=== PATIENT | female | born 1935 | race Caucasian/White ===

== ENCOUNTER 2022-03-18 10:58 | Emergency (ER) | payer OTHER ==
[~2022-03-18 10:58] MED LIST: ACETAMINOPHEN325 MG PO; AMARYL2 MG PO; ANTIVERT25 MG PO; ASPIRIN CHEWABL81 MG PO; CERTAGEN1 EACH PO; CIPRO500 M1 PO; COREG12.5 MG PO; FENOFIBRATE145 MG PO; FEOSOL325 MG PO; JANUMET 50-1,01 EACH PO; LANTUS **100 UNITS/ SC; LAXATIVE5 M1 PO; LISINOPRIL-HCT1 EAC1 PO; LOTREL 5-20 MG1 EACH PO; LOVASTATIN20 MG PO; LOVAZA1 GM PO; METFORMIN HCL500 MG PO; NIACIN ER500 MG PO; PRAVACHOL20 MG PO; PRILOSEC20 MG PO; SYNTHROID50 MCG PO; TURMERIC 500 M1 EACH PO; ULTRAM50 MG PO; VASCEPA1 GM PO; XARELTO10 MG PO; [UNRECOGNIZED DRUG - OTHER] PO
[2022-03-18] MEDS ORDERED: NORCO 5-325 TA1 EACH PO (13:15)
[2022-03-18] MEDS ORDERED: PREDNISONE 20MG20 MG PO (13:15)
== END 2022-03-18 14:13 | disposition home or self-care (01) ==
LOC: FER 10:58
DX: M46.22 Osteomyelitis of vertebra, cervical region (principal); E11.9 Type 2 diabetes mellitus without complications; I10 Essential (primary) hypertension; Z79.84 Long term (current) use of oral hypoglycemic drugs; Z79.4 Long term (current) use of insulin
CPT/HCPCS: 72125

== ENCOUNTER 2022-04-02 18:04 | Emergency (ER) | payer OTHER ==
[~2022-04-02 18:04] MED LIST changes: +NORCO 5-325 TA1 EACH PO; +PREDNISONE 20MG20 MG PO
[2022-04-02 19:59] LABS: BILIRUBIN NEGATIVE (NEGATIVE); BLOOD NEGATIVE Ery/uL (NEGATIVE); CLARITY CLEAR (CLEAR); COLOR YELLOW (YELLOW); GLUCOSE (U) NORMAL (NORMAL); LEUKOCYTES NEGATIVE Leu/uL (NEGATIVE); NITRITE NEGATIVE (NEGATIVE); PROTEIN NEGATIVE (NEGATIVE); UROBILINOGEN 0.2 mg/dL (0.2-1.0); pH 5.5 (5.0-9.0)
[2022-04-02 19:59] LABS: BASOPHIL 0.2 % (0-2); EOSINOPHIL 0.8 % (0-7); HCT 27.9 % (37.0-47.0); LYMPHOCYTE 12.3 % (15-48); MCHC 28.7 g/dL (32.0-36.0); MCV 76.9 fL (78.0-100.0); MONOCYTE 5.1 % (0-12); NEUTROPHIL 80.9 % (41-80); NRBC 0; PLT 505 K/uL (150-400); RBC 3.63 M/uL (4.20-5.40); RDW 18.7 % (11.5-14.0); WBC 14.9 K/uL (4.0-10.5)
[2022-04-02 20:15] LABS: BUN/CREAT RATIO (CALC) 19.1 RATIO; CREATININE 1.1 mg/dL (0.51-0.95); POTASSIUM 4.3 mmol/L (3.5-5.1)
[2022-04-02] MEDS ORDERED: BACLOFEN 10MG T10 MG PO (20:42)
== END 2022-04-02 21:11 | disposition home or self-care (01) ==
LOC: FER 18:04
PROVIDERS: Nurse Practitioner Family
DX: M54.2 Cervicalgia (principal); M19.09 Primary osteoarthritis, other specified site; I10 Essential (primary) hypertension; E11.9 Type 2 diabetes mellitus without complications; Z87.891 Personal history of nicotine dependence
CPT/HCPCS: 36415; 80048; 81003; 85025; 99283

== ENCOUNTER → 2022-04-26 | Day surgery (SDC) | payer OTHER ==
[~2022-04-26] VITALS: Ht 154.9 cm; Wt 71.8 kg
[~2022-04-26] MED LIST changes: +BACLOFEN 10MG T10 MG PO; +IRON325 M1 PO; +PROTONIX 40MG T40 MG PO
== END | disposition home or self-care (01) ==
LOC: FAS 04-05 12:00
DX: D64.9 Anemia, unspecified (principal); K92.1 Melena; R19.7 Diarrhea, unspecified; K59.00 Constipation, unspecified; K29.80 Duodenitis without bleeding; K31.9 Disease of stomach and duodenum, unspecified; C43.9 Malignant melanoma of skin, unspecified; K21.9 Gastro-esophageal reflux disease without esophagitis; K44.9 Diaphragmatic hernia without obstruction or gangrene; K57.30 Diverticulosis of large intestine without perforation or abscess without bleeding; K62.89 Other specified diseases of anus and rectum; I25.10 Atherosclerotic heart disease of native coronary artery without angina pectoris; I10 Essential (primary) hypertension; E03.9 Hypothyroidism, unspecified; E78.00 Pure hypercholesterolemia, unspecified; Z86.010 Personal history of colon polyps
CPT/HCPCS: J2704; J7120

== ENCOUNTER 2022-05-17 08:16 | Emergency (ER) | payer OTHER ==
[2022-05-17 09:39] LABS: BILIRUBIN NEGATIVE (NEGATIVE); BLOOD TRACE-INTACT Ery/uL (NEGATIVE); CLARITY CLEAR (CLEAR); COLOR YELLOW (YELLOW); GLUCOSE (U) NORMAL (NORMAL); LEUKOCYTES TRACE Leu/uL (NEGATIVE); NITRITE NEGATIVE (NEGATIVE); PROTEIN TRACE (LOW) mg/dL (NEGATIVE); SPECIFIC GRAVITY 1.015 (1.001-1.030); UROBILINOGEN 0.2 mg/dL (0.2-1.0)
[2022-05-17 09:50] LABS: BACTERIA 1+
[2022-05-17 10:22] LABS: BASOPHIL 0.4 % (0-2); HCT 29.8 % (37.0-47.0); HGB 8.6 g/dl (12.5-16.0); LYMPHOCYTE 15.8 % (15-48); MCH 23.8 pg (25.0-31.0); MCHC 28.9 g/dL (32.0-36.0); MCV 82.3 fL (78.0-100.0); MONOCYTE 6.7 % (0-12); MPV 8.8 fL (6.0-9.5); NEUTROPHIL 75.3 % (41-80); NRBC 0; PLT 570 K/uL (150-400); RBC 3.62 M/uL (4.20-5.40); RDW 21.9 % (11.5-14.0); WBC 12.6 K/uL (4.0-10.5)
[2022-05-17 10:38] LABS: INR 1.21 (0.9-1.2); PROTHROMBIN TIME 14.9 SECONDS (11.9-13.9)
[2022-05-17 10:39] LABS: PTT 43.3 SECONDS (24.9-34.6)
[2022-05-17 12:24] LABS: BUN/CREAT RATIO (CALC) 20.1 RATIO; CREATININE 1.34 mg/dL (0.51-0.95); POTASSIUM 4.4 mmol/L (3.5-5.1)
[2022-05-17 12:25] LABS: ALBUMIN 2.6 g/dL (3.4-5.0); BILIRUBIN - TOTAL 0.4 mg/dL (0.2-1.0); FT4 (FREE T4) 1.4 ng/dL (0.76-1.46); GLOBULIN (CALCULATION) 4.3 g/dL; MAGNESIUM 1.7 mg/dL (1.8-2.4); TOTAL PROTEIN 6.9 g/dL (6.4-8.2)
[2022-05-17] MEDS ORDERED: ANTIVERT25 MG PO (14:27)
== END 2022-05-17 15:05 | disposition home or self-care (01) ==
LOC: FER 08:16
PROVIDERS: Emergency Medicine
DX: R42 Dizziness and giddiness (principal); E11.9 Type 2 diabetes mellitus without complications; I25.2 Old myocardial infarction; F17.210 Nicotine dependence, cigarettes, uncomplicated; Z20.822 Contact with and (suspected) exposure to COVID-19; Z79.4 Long term (current) use of insulin; Z79.84 Long term (current) use of oral hypoglycemic drugs
CPT/HCPCS: 36415; 70450; 80053; 81001; 83735; 84145; 84439; 84443; 84484; 85025; 85610; 85730; 86140; 87088; 93005; U0002

== ENCOUNTER 2022-07-10 12:33 | Day surgery (SDCO) | payer OTHER ==
[~2022-07-10] VITALS: Ht 154.9 cm; Wt 69.9 kg
[2022-07-10 14:01] LABS: BASOPHIL 0.4 % (0-2); EOSINOPHIL 1.1 % (0-7); HCT 24.1 % (37.0-47.0); LYMPHOCYTE 30.2 % (15-48); MCH 23.4 pg (25.0-31.0); MCHC 28.2 g/dL (32.0-36.0); MCV 82.8 fL (78.0-100.0); MPV 8.7 fL (6.0-9.5); NRBC 0; PLT 667 K/uL (150-400); RBC 2.91 M/uL (4.20-5.40); RDW 17.9 % (11.5-14.0); WBC 8.9 K/uL (4.0-10.5)
[2022-07-10 14:25] LABS: HGB 6.8 g/dl (12.5-16.0)
[2022-07-10 14:28] LABS: INR 1.21 (0.9-1.2); PROTHROMBIN TIME 14.9 SECONDS (11.9-13.9); PTT 35.8 SECONDS (24.9-34.6)
[2022-07-10 14:34] LABS: CLARITY CLEAR (CLEAR); COLOR YELLOW (YELLOW); SPECIFIC GRAVITY 1.015 (1.001-1.030)
[2022-07-10 14:35] LABS: BILIRUBIN NEGATIVE (NEGATIVE); BLOOD NEGATIVE Ery/uL (NEGATIVE); GLUCOSE (U) NORMAL (NORMAL); LEUKOCYTES NEGATIVE Leu/uL (NEGATIVE); NITRITE NEGATIVE (NEGATIVE); PROTEIN NEGATIVE (NEGATIVE); UROBILINOGEN 0.2 mg/dL (0.2-1.0)
[2022-07-10 15:37] LABS: ALBUMIN 3.1 g/dL (3.4-5.0); BILIRUBIN - TOTAL 0.2 mg/dL (0.2-1.0); BUN/CREAT RATIO (CALC) 15.1 RATIO; CREATININE 2.32 mg/dL (0.51-0.95); GLOBULIN (CALCULATION) 4.4 g/dL; POTASSIUM 5.6 mmol/L (3.5-5.1); TOTAL PROTEIN 7.5 g/dL (6.4-8.2)
[2022-07-10 17:25] LABS: RETICULOCYTE COUNT 3.7 % (1.0-2.0)
[2022-07-10 17:34] LABS: IRON % SATURATION 3.5 %SAT (20-50)
[2022-07-10 18:36] LABS: FOLIC ACID (SERUM) 12.6 ng/mL (8.6-58.9)
[2022-07-10] MEDS ORDERED: SYNTHROID75 MCG PO (19:03)
[2022-07-10] MEDS ORDERED: NIACIN500 MG PO (19:04)
[2022-07-10] MEDS ORDERED: AMARYL2 MG PO (19:05)
[2022-07-10] MEDS ORDERED: BAYER CHEWABLE81 MG PO (19:05)
[2022-07-10] MEDS ORDERED: JANUMET 50-1,01 EACH PO (19:06)
[2022-07-10] MEDS ORDERED: COREG12.5 MG PO (19:07)
[2022-07-10] MEDS ORDERED: PRINIVIL20 MG PO (19:08)
[2022-07-10] MEDS ORDERED: LOVASTATIN20 MG PO (19:10)
[2022-07-10] MEDS ORDERED: FENOFIBRATE145 MG PO (19:10)
[2022-07-10] MEDS ORDERED: LANTUS **100 UNITS/ SC (19:11)
[2022-07-10] MEDS ORDERED: [UNRECOGNIZED DRUG - OTHER] PO (19:12)
[2022-07-11 06:08] LABS: BASOPHIL 0.2 % (0-2); EOSINOPHIL 1.2 % (0-7); HCT 31.7 % (37.0-47.0); LYMPHOCYTE 27.7 % (15-48); MCH 25.7 pg (25.0-31.0); MCHC 30.3 g/dL (32.0-36.0); MONOCYTE 8.5 % (0-12); MPV 8.4 fL (6.0-9.5); NEUTROPHIL 61.3 % (41-80); NRBC 0; PLT 505 K/uL (150-400); RBC 3.73 M/uL (4.20-5.40); RDW 16.8 % (11.5-14.0); WBC 9.2 K/uL (4.0-10.5)
[2022-07-11 06:39] LABS: BUN/CREAT RATIO (CALC) 12.8 RATIO; CREATININE 2.19 mg/dL (0.51-0.95); POTASSIUM 4.6 mmol/L (3.5-5.1)
[2022-07-11 06:41] LABS: HGB 9.6 g/dl (12.5-16.0)
== END 2022-07-11 11:22 | disposition home or self-care (01) ==
LOC: FER 12:33 → FMS 16:41
PROVIDERS: Physician Assistant; ADMIT Internal Medicine
DX: D64.9 Anemia, unspecified (principal); N17.9 Acute kidney failure, unspecified; I12.9 Hypertensive chronic kidney disease with stage 1 through stage 4 chronic kidney disease, or unspecified chronic kidney disease; E11.22 Type 2 diabetes mellitus with diabetic chronic kidney disease; N18.2 Chronic kidney disease, stage 2 (mild); U07.1 COVID-19; I25.2 Old myocardial infarction; E78.00 Pure hypercholesterolemia, unspecified; E03.9 Hypothyroidism, unspecified; Z86.73 Personal history of transient ischemic attack (TIA), and cerebral infarction without residual deficits; Z79.82 Long term (current) use of aspirin; Z87.891 Personal history of nicotine dependence
CPT/HCPCS: 36415; 36430; 80048; 80053; 81003; 82607; 82746; 83010; 83540; 83550; 83615; 84132; 85025; 85610; 85730; 86850; 86900; 86901; 86922; G0378; J2916; J7030; P9016; U0002